=== PATIENT | female | born 1985 | race Hispanic/Latino ===

== ENCOUNTER 2018-12-27 07:44 | Day surgery (SDC) | payer BC ==
[~2018-12-27 07:44] MED LIST: DECADRON ONE; DIPRIVAN 10 MG/ML IV ONE; MARCAINE 0.25% INFILTRATI ONE; METHYLENE BLUE ONE; NACL 0.9% 500 ML 0 ML ONE; QUELICIN ONE; SUBLIMAZE ONE; XYLOCAINE MPF 2% ONE; ZEMURON IV ONE; ZOFRAN ONE
[2018-12-27] MEDS ORDERED: ZOFRAN IV PRN (07:46)
[2018-12-27] MEDS ORDERED: SUBLIMAZE IV PRN (07:46)
--- NOTE | 2018-12-27 07:47 | Anesthesia Day of Surgery ---
Anesthesia Day of Surgery - Day of Surgery Patient Examined: Yes Patient H&P Reviewed: Yes Patient is NPO: Yes
--- NOTE | 2018-12-27 07:49 | Anesthesia Consultation ---
Anesthesia Consult and Med Hx Date of service: 12/27/18 - Airway Anesthetic Teeth Evaluation: Good ROM Head & Neck: Adequate Mental/Hyoid Distance: Adequate Mallampati Class: Class II Intubation Access Assessment: Probably Good - Pre-Operative Health Status ASA Pre-Surgery Classification: ASA2 Proposed Anesthetic Plan: General - Pulmonary Hx Asthma: Yes (Last treated 2 mos ago) - Cardiovascular System Hx Peripheral Vascular Disease: Yes (Difficult IV stick) - Central Nervous System CVA: No (Hx migraines) Hx Psychiatric Problems: No - Gastrointestinal Hx Gastroesophageal Reflux Disease: Yes (Occasional heartburn) - Endocrine Hx Thyroid Disease: Yes - Other Systems Hx Cancer: No
[2018-12-27] MEDS ORDERED: NEURONTIN PO NR (08:00)
[2018-12-27] MEDS ORDERED: TYLENOL PO NR (08:00)
[2018-12-27] MEDS ORDERED: VERSED IV NR (08:00)
[2018-12-27] MEDS ORDERED: LACTATED RINGERS 1,000 ML IV SCH ×2 (08:00)
--- NOTE | 2018-12-27 08:12 | Short Stay Summary ---
Short Stay Documentation Date of service: 12/27/18 Narrative H&P: Pt is a 33 year old female who presents today for elective sterilization. She has no medical history. - History H&P: obtained from office Past Medical History: No medical history Past Surgical History: No surgical history Social history: - Allergies and Medications Current Medications: Allergies No Known Allergies Allergy (Unverified 12/26/18 16:53) Home Medications Medication Instructions Recorded Confirmed Last Taken Type ALBUTEROL Inhaler (OR & NICU) 2 puff IH QID PRN 12/26/18 12/26/18 Unknown History [Proair] Levothyroxine Sodium [Synthroid] 137 mcg PO DAILY 12/26/18 12/26/18 Unknown History Active Medications Acetaminophen (Tylenol) 650 mg PO PREOP NR Stop: 12/27/18 16:00 Celecoxib (Celebrex) 200 mg PO PREOP NR Stop: 12/27/18 16:00 Fentanyl (Sublimaze) 50 mcg IV Q5MIN PRN PRN Reason: Pain , Severe (7-10) Stop: 12/27/18 20:00 Gabapentin (Neurontin) 300 mg PO PREOP NR Stop: 12/27/18 16:00 Lactated Ringer's (Lactated Ringers) 1,000 mls @ 75 mls/hr IV DIRECT MARJORIE Midazolam HCl (Versed) 2 mg IV PREOP NR Stop: 12/27/18 23:59 Ondansetron HCl (Zofran) 4 mg IV ONCE PRN PRN Reason: Nausea And Vomiting - Physical exam General appearance: no acute distress, mild distress, severe distress Integumentary: no rash, no growths HEENT: Atraumatic Lungs: Clear to auscultation Breasts: deferred Heart: Regular rate, Normal S1, Normal S2 Gastrointestinal: normal, normoactive bowel sounds Female Genitourinary: deferred Rectal Exam: deferred Extremities: No edema - Brief post op/procedure progress note Date of procedure: 12/27/18 Pre-op diagnosis: Elective sterilization Post-op diagnosis: same Procedure: Bilateral laparoscopic salpingectomy Anesthesia: GETA Findings: normal uterus, tubes and ovaries Surgeon: EILEEN FLOYD Estimated blood loss: minimal Pathology: list (right and left tubes) Specimen disposition: to lab Condition: stable - Hospital course Hospital course: unremarkable - Disposition Condition at discharge: Good Disposition: [id number] TO HOME OR SELFCARE Short Stay Discharge Plan Activity: advance as tolerated Weight Bearing Status: Weight Bear as Tolerated Diet: regular Wound: keep clean and dry Follow up with: EILEEN FLOYD MD [Staff Physician] - 14 Days Prescriptions: Ibuprofen [Motrin] 800 mg PO Q8HR PRN #40 tablet PRN Reason: Pain, Moderate (4-6) HYDROcodone/ACETAMINOPHEN [[place] 5-325 Tablet] 2 each PO Q6H PRN #30 tablet PRN Reason: Pain, Moderate (4-6)
[2018-12-27] MEDS ORDERED: ANCEF ONE ×2 (08:51)
[2018-12-27] MEDS ORDERED: MARCAINE 0.25% INFILTRATI ONE (08:52)
[2018-12-27] MEDS ORDERED: PEPCID PO NR (09:00)
[2018-12-27] MEDS ORDERED: ANCEF/STERILE WATER 2 GM/20 ML 2 GM/20 ML SYRINGE IV NR (09:00)
--- NOTE | 2018-12-27 09:48 | Operative Report ---
Operative Report Operative Report: Preoperative diagnosis: Undesired fertility Postoperative diagnosis: Same Procedure: Bilateral laparoscopic salpingectomy Surgeon: Kalee Garcia Anesthesia: General EBL: Minimal IV fluids: 800 mL Urine output: 30 mL Findings: Normal uterus tubes and ovaries, adhesions from the anterior abdominal wall to the right lateral uterus Specimens: Portion of right and left fallopian tube Complications: None The patient was properly identified as herself. She was then taken to the OR with IV running and in place. She was given general anesthesia without difficulty. She was placed in a dorsal lithotomy position. She was then prepped and draped in normal sterile fashion. Attention was turned to the patient's vagina. Her bladder was drained of clear urine with a red rubber catheter. The speculum was then placed the patient's vagina. The cervix was visualized and grasped with tenaculum. The acorn cannula was then inserted. The surgeon's gloves were changed and attention turned to the patient's abdomen. A small incision was made in the patient's umbilicus incision a 5 mm trocar was placed. The laparoscope confirmed intra-abdominal placement. The abdomen was insufflated with CO2 gas to approximately 25 mmHg. Both fallopian tubes were identified. With direct visualization a second trocar was placed through an incision in the left lower quadrant. Both tubes were found and followed out to the fimbriated ends. Each tube was cauterized at the portion nearest the cornua, then cauterized across the broad ligament until the tube was completely detached. There was excellent hemostasis at the end of this portion of the procedure. Each tube was handed off for pathology. At this point the abdomen was deflated. All instruments were then removed from the abdomen. The incisions were then closed with 4-0 Monocryl. The incisions were also injected with quarter percent Marcaine. The patient tolerated the procedure well she was then awakened and taken recovery in stable condition. Sponge needle and instrument counts were correct 2.
[2018-12-27] MEDS ORDERED: NORCO 5/325 PO PRN (13:44)
--- NOTE | 2018-12-27 15:56 | Post Anesthesia Evaluation ---
- Post Anesthesia Evaluation Patient Participated: Yes Airway Patent: Yes Stable Respiratory Function: Yes Nausea/Vomiting: No Temp > 96.8F: Yes Pain Manageable: Yes Adequeate Hydration: Yes Block Receding Appropriately: Not Applicable Patient on Ventilator: No Other Comments: RUE IV infiltrated. Discovered in Phase 2 PACU. Swelling has gone down during the day. Good radial pulse and good cap refill
[2018-12-27 18:16] VITALS: BP 118/68
== END 2018-12-27 15:30 | disposition home or self-care (01) ==
LOC: OR 07:44
PROVIDERS: ATTEND Obstetrics & Gynecology
DX: Z30.2 Encounter for sterilization (principal); G43.909 Migraine, unspecified, not intractable, without status migrainosus; I73.9 Peripheral vascular disease, unspecified; J45.909 Unspecified asthma, uncomplicated; E06.9 Thyroiditis, unspecified; K21.9 Gastro-esophageal reflux disease without esophagitis; Z79.899 Other long term (current) drug therapy; Z90.49 Acquired absence of other specified parts of digestive tract; Z98.890 Other specified postprocedural states
CPT/HCPCS: 58670; 81025; 88302; J0330; J0690; J1100; J2405; J2704; J3010; J7120; J7040; Q9968